=== PATIENT | female | born 1980 | race Caucasian/White ===

== ENCOUNTER 2023-06-27 07:16 | Emergency (ER) | payer BC ==
[2023-06-27 08:00] LABS: BASOPHILS ABSOLUTE AUTO 0.05 K/uL (0.00-0.20); BASOPHILS PERCENT AUTO 0.3 % (0.0-2.0); EOSINOPHILS ABSOLUTE AUTO 0.37 K/uL (0.00-0.50); EOSINOPHILS PERCENT AUTO 2.4 % (0.0-5.0); HEMATOCRIT 41.4 % (34.0-46.0); HEMOGLOBIN 14.1 g/dL (11.7-15.5); LYMPHOCYTES ABSOLUTE AUTO 4.54 K/uL (0.50-3.50); LYMPHOCYTES PERCENT AUTO 29.2 % (10.0-50.0); MEAN CORPUSCULAR HEMOGLOBIN 31.8 pg (28.2-33.3); MEAN CORPUSCULAR HGB CONC 34.1 g/dL (31.7-36.0); MEAN CORPUSCULAR VOLUME 93.2 fL (84.0-98.0); MONOCYTES ABSOLUTE AUTO 0.99 K/uL (0.00-1.00); MONOCYTES PERCENT AUTO 6.4 % (2.0-14.0); NEUTROPHILS ABSOLUTE AUTO 9.62 K/uL (1.40-7.00); NEUTROPHILS PERCENT AUTO 61.7 % (45.0-80.0); PLATELET COUNT,PLT 299 K/uL (150-350); RED BLOOD CELL COUNT 4.44 M/uL (3.77-5.09); RED CELL DISTRIBUTION WIDTH 13.3 % (11.2-14.1); WHITE BLOOD CELL COUNT,WBC 15.6 K/uL (4.0-10.2)
[2023-06-27 08:11] LABS: ALANINE AMINOTRANSFERASE,ALT 20 U/L (12-78); ALBUMIN 3.6 g/dL (3.4-5.0); ALKALINE PHOSPHATASE 57 IU/L (46-116); ANION GAP 7.7 meq/L (7-15); ASPARTATE AMNIOTRANSFERASE,AST 27 U/L (15-37); BILIRUBIN TOTAL 0.5 mg/dL (0.2-1.0); BLOOD UREA NITROGEN,BUN 12 mg/dL (7-18); CALCIUM 8.3 mg/dL (8.5-10.1); CARBON DIOXIDE,CO2 25.3 mmol/L (21.0-32.0); CHLORIDE,CL 106 mmol/L (98-107); CREATININE 0.65 mg/dL (0.51-1.17); GLUCOSE RANDOM 99 mg/dL (70-99); POTASSIUM,K 3.9 mmol/L (3.5-5.1); PROTEIN TOTAL,TP 6.9 g/dL (6.4-8.2); SODIUM,NA 139 mmol/L (136-145)
[2023-06-27 08:14] LABS: ESTIMATED GFR 113 mL/min (>=60)
[2023-06-27] MEDS: traMADol 50 MG Tab PO ONE (08:22)
[2023-06-27] MEDS: Ketorolac 30 MG/ML SDV IM ONE (08:23)
[2023-06-27] MEDS: Bacitracin/Neomycin/Polymyxin B Oint 0.9 GM U/D Packet TOP ONE (08:23)
[2023-06-27] MEDS: Diphtheria,Pertussis(Acell),Tetanus Vaccine 0.5 ML Syringe IM ONE (08:24)
[2023-06-27] MEDS: Take Home: traMADol 50 MG, 4 Tab Pack PO ONE (08:52)
[2023-06-27] MEDS: Take Home: Amoxicillin/Clavulanate K 875-125 MG Tab, 6 Tab Pack PO ONE (08:52)
== END 2023-06-27 09:00 | disposition home or self-care (01) ==
LOC: LL.ED 07:16
DX: S51.852A Open bite of left forearm, initial encounter (principal); F17.210 Nicotine dependence, cigarettes, uncomplicated; Z88.5 Allergy status to narcotic agent; Z91.040 Latex allergy status; Z79.899 Other long term (current) drug therapy; Z23 Encounter for immunization; W54.0XXA Bitten by dog, initial encounter
CPT/HCPCS: 36415; 73090; 80053; 85025; 90471; 90715; 96372; 99283; A9270; J1885

== ENCOUNTER 2024-10-11 20:00 | Emergency (ER) | payer MEDICAID ==
[2024-10-11 20:41] LABS: BASOPHILS ABSOLUTE AUTO 0.05 K/uL (0.00-0.20); BASOPHILS PERCENT AUTO 0.5 % (0.0-2.0); EOSINOPHILS ABSOLUTE AUTO 0.39 K/uL (0.00-0.50); EOSINOPHILS PERCENT AUTO 3.8 % (0.0-5.0); IMMATURE GRAN ABSOLUTE AUTO 0.02 10^3/uL (0.00-0.04); IMMATURE GRAN PERCENT AUTO 0.2 % (0.0-0.4); LYMPHOCYTES ABSOLUTE AUTO 4.33 K/uL (0.50-3.50); LYMPHOCYTES PERCENT AUTO 41.8 % (10.0-50.0); MONOCYTES ABSOLUTE AUTO 1.12 K/uL (0.00-1.00); MONOCYTES PERCENT AUTO 10.8 % (2.0-14.0); NEUTROPHILS ABSOLUTE AUTO 4.45 K/uL (1.40-7.00); NEUTROPHILS PERCENT AUTO 42.9 % (45.0-80.0); PLATELET COUNT,PLT 280 K/uL (150-350); RED BLOOD CELL COUNT 4.21 M/uL (3.77-5.09); RED CELL DISTRIBUTION WIDTH 11.8 % (11.2-14.1); WHITE BLOOD CELL COUNT,WBC 10.4 K/uL (4.0-10.2)
[2024-10-11 21:15] LABS: ALANINE AMINOTRANSFERASE,ALT 55 U/L (12-78); ASPARTATE AMNIOTRANSFERASE,AST 35 U/L (15-37); BILIRUBIN TOTAL 0.2 mg/dL (0.2-1.0); BLOOD UREA NITROGEN,BUN 13 mg/dL (7-18); CARBON DIOXIDE,CO2 28.2 mmol/L (21.0-32.0); CHLORIDE,CL 107 mmol/L (98-107); CREATININE 0.79 mg/dL (0.51-1.17); ESTIMATED GFR 96 mL/min (>=60); GLUCOSE RANDOM 120 mg/dL (70-99); POTASSIUM,K 4.2 mmol/L (3.5-5.1); PROTEIN TOTAL,TP 7.0 g/dL (6.4-8.2); SODIUM,NA 142 mmol/L (136-145)
== END 2024-10-11 21:45 | disposition home or self-care (01) ==
LOC: LL.ED 20:00
DX: R10.31 Right lower quadrant pain (principal); Z88.5 Allergy status to narcotic agent; Z91.040 Latex allergy status
CPT/HCPCS: 36415; 80053; 85025; 86140; 99284

== ENCOUNTER 2025-01-03 01:51 | Emergency (ER) | payer OTHER, MEDICAID ==
[2025-01-03] MEDS: Take Home: Cyclobenzaprine 10 MG Tab, 4 Tab Pack PO ONE (02:40)
[2025-01-03] MEDS: Take Home: Ketorolac 10 MG Tab, 4 Tab Pack PO ONE (02:40)
== END 2025-01-03 02:52 | disposition home or self-care (01) ==
LOC: LL.ED 01:51
DX: S29.012A Strain of muscle and tendon of back wall of thorax, initial encounter (principal); F17.200 Nicotine dependence, unspecified, uncomplicated; Z88.8 Allergy status to other drugs, medicaments and biological substances; Z91.040 Latex allergy status; X50.0XXA Overexertion from strenuous movement or load, initial encounter
CPT/HCPCS: 99283; A9270-GY